=== PATIENT | male | born 2000 | race Hispanic/Latino ===

== ENCOUNTER 2023-08-06 01:51 | Emergency (ER) | payer SELFPAY ==
[2023-08-06] MEDS ORDERED: AMOX/K CLAV875 M1 PO (02:46)
[2023-08-06 03:57] VITALS: BP 143/85
== END 2023-08-06 04:00 | disposition home or self-care (01) | DRG 153 ==
LOC: ED 01:51
DX: H66.93 Otitis media, unspecified, bilateral (principal)